=== PATIENT | female | born 1995 | race Caucasian/White ===

== ENCOUNTER 2016-08-12 18:04 | Emergency (ER) | payer OTHER ==
[~2016-08-12] VITALS: Ht 160 cm; Wt 89.1 kg
[~2016-08-12 18:04] MED LIST: AUGMENTIN500 MG PO; BACTRIM,SEPT1 TABLET PO; CIPRO500 MG PO; ENDOCET 5-3251 EACH PO; FLAGYL500 MG PO; IBUPROFEN800 MG PO; KEFLEX500 MG PO; MOTRIN400 MG PO; NAPROSYN500 MG PO; PYRIDIUM100 MG PO; ROBITUSSIN AC,T10 ML PO; STRATTERA40 MG PO; VYVANSE40 MG PO; VYVANSE50 MG PO
[2016-08-12] MEDS ORDERED: KENALOG,ARISTOC80 GM TP (19:49)
[2016-08-12] MEDS ORDERED: BACTROBAN CREAM15 GM TP (19:49)
[2016-08-12 20:01] VITALS: BP 130/74
== END 2016-08-12 20:10 | disposition home or self-care (01) ==
LOC: EME 18:04
DX: L30.9 Dermatitis, unspecified (principal); L01.00 Impetigo, unspecified
CPT/HCPCS: 99281; 99283

== ENCOUNTER 2016-08-30 16:49 | Emergency (ER) | payer OTHER ==
[~2016-08-30] VITALS: Ht 160 cm; Wt 89.0 kg
[~2016-08-30 16:49] MED LIST changes: +BACTROBAN CREAM15 GM TP; +KENALOG,ARISTOC80 GM TP
[2016-08-30 17:36] LABS: ADD MIUA? YES; BILIRUBIN NEGATIVE; BLOOD NEGATIVE; COLOR YELLOW ((YELLOW)); GLUCOSE (STRIP) NEGATIVE; KETONES NEGATIVE; LEUKOCYTES SMALL; NITRITE NEGATIVE; PROTEIN (STRIP) NEGATIVE; UROBILINOGEN 0.2 MG/DL (0.2-1.0)
[2016-08-30 17:39] LABS: BACTERIA NONE SEEN /HPF; EPITHELIAL CELLS RARE /HPF; MUCUS TRACE /LPF; RED BLOOD CELLS 0-5 /HPF (0-5); UCUL ADDED? NO; WHITE BLOOD CELLS 0-5 /HPF (0-5)
[2016-08-30 17:45] LABS: HEMATOCRIT 40.8 % (36.0-46.0); MCH 28.4 PG (29.0-34.0); MCHC 33.6 G/DL (30.0-36.0); MCV 84.5 FL (83-99); MEAN PLAT.VOLUME 10.1 uM^3 (9.5-12.4); PLATELET COUNT 355 K/uL (156-360); RBC DIS.WIDTH-CV 12.1 % (11.8-14.6); RBC DIS.WIDTH-SD 37.2 % (39-53); RED BLOOD COUNT 4.83 M/uL (3.80-5.20); WHITE BLOOD COUNT 9.6 K/uL (4.1-10.2)
[2016-08-30 17:58] LABS: CHLORIDE 107 mEq/L (99-109); POTASSIUM 3.9 mEq/L (3.7-5.4); SODIUM 138 mEq/L (136-147)
[2016-08-30 18:00] LABS: GLUCOSE 95 mg/dL (70-99)
[2016-08-30 18:01] LABS: ANION GAP 10 MEQ/L (2-14)
[2016-08-30 18:02] LABS: TOTAL BILIRUBIN 0.2 mg/dL (0.0-1.0)
[2016-08-30 18:04] LABS: ALKALINE PHOSPHATASE 82 IU/L (3-129); GFR ESTIMATE (CALCULATED) > 59 mL/min/
[2016-08-30 18:05] LABS: UREA NITROGEN (BUN) 14 mg/dL (9-23)
[2016-08-30 18:13] LABS: QUANTITATIVE HCG < 4.0 MIU/ML
[2016-08-30] MEDS ORDERED: CITRATE OF MAG296 ML PO (20:47)
[2016-08-30 20:52] VITALS: BP 112/76
== END 2016-08-30 20:53 | disposition home or self-care (01) ==
LOC: EME 16:49
DX: K59.00 Constipation, unspecified (principal)
CPT/HCPCS: 74020; 80053; 81003; 84702; 85027; 99281; 99284

== ENCOUNTER 2016-10-19 11:04 | Emergency (ER) | payer OTHER ==
[~2016-10-19] VITALS: Ht 160 cm; Wt 92.7 kg
[~2016-10-19 11:04] MED LIST changes: +CITRATE OF MAG296 ML PO
[2016-10-19] MEDS ORDERED: MOTRIN600 MG PO (12:20)
[2016-10-19] MEDS ORDERED: BACTRIM,SEPT1 TABLET PO (12:20)
[2016-10-19 12:32] VITALS: BP 148/76
== END 2016-10-19 12:33 | disposition home or self-care (01) ==
LOC: EME 11:04
DX: S91.011A Laceration without foreign body, right ankle, initial encounter (principal); L03.115 Cellulitis of right lower limb; W25.XXXA Contact with sharp glass, initial encounter; F90.9 Attention-deficit hyperactivity disorder, unspecified type; E66.9 Obesity, unspecified; Z68.36 Body mass index [BMI] 36.0-36.9, adult
CPT/HCPCS: 99281; 99283